=== PATIENT | female | born 1960 | race Caucasian/White ===

== ENCOUNTER 2016-11-24 01:12 | Emergency (ER) | payer OTHER ==
[2016-11-24] MEDS ORDERED: ASPIRIN CHEWTAB 81 MG TABLET ONE (01:41)
[2016-11-24 02:48] LABS: ALBUMIN 3.6 gm/dL (3.5-5.7); CALCIUM 9.2 mg/dL (8.6-10.3); MAGNESIUM 1.5 mg/dL (1.9-2.7)
[2016-11-24 02:49] LABS: TROPONIN I < 0.01 ng/ml (0.0-0.06)
[2016-11-24 02:51] LABS: ABSOLUTE NEUTROPHIL COUNT 2.8 K/mm3 (1.8-7.7); BASO # 0.1 K/mm3 (0.0-0.2); BASO % 0.8 % (0.2-1.0); EOS # 0.2 (0.0-0.5); EOS % 2.7 % (0.9-2.9); HEMATOCRIT 33.5 % (37.0-47.0); HEMOGLOBIN 11.8 gm/l (12.0-16.0); IMM NEUT% 0.3 % (0-1); LYMPH # 3.5 (1.0-4.8); LYMPH % 48.5 % (15-45); MEAN CELL VOLUME 81.5 fl (81.0-99.0); MEAN CORPUSCULAR HEMOGLOBIN 28.7 pg (27.0-31.0); MEAN CORPUSCULAR HGB CONC 35.2 g/dl (33.0-37.0); MEAN PLATELET VOLUME 10.3 fl (7.4-10.4); MONO # 0.6 (0.0-0.8); NEUT % 38.7 % (43-75); PLATELET COUNT 351 K/mm3 (130-400); RED CELL DISTRIBUTION WIDTH 11.9 % (11.5-14.5)
[2016-11-24 04:24] LABS: SPECIFIC GRAVITY 1.015 (1.001-1.030); URINE APPEARANCE CLEAR; URINE BILIRUBIN NEGATIVE (NEGATIVE); URINE BLOOD NEGATIVE (NEGATIVE); URINE COLOR LIGHT YELLOW; URINE GLUCOSE (UA) NEGATIVE (NEGATIVE); URINE LEUKOCYTE ESTERASE NEGATIVE (NEGATIVE); URINE NITRITE NEGATIVE (NEGATIVE); URINE PROTEIN NEGATIVE (NEGATIVE); URINE UROBILINOGEN NORMAL (0-1 mg/dl)
--- NOTE | 2016-11-24 08:52 | RAD ---
Exam: Two-view chest COMPARISON: None INDICATION: Upper chest pain. Finding: PA and lateral views of the chest were obtained. Cardiac silhouette is within normal limits. Lungs are well-inflated. There is no focal airspace disease or pleural effusion. Bones of the chest wall within normal limits. IMPRESSION: Negative two-view chest.
== END 2016-11-24 06:28 | disposition home or self-care (01) ==
LOC: ED 01:12
DX: R07.9 Chest pain, unspecified (principal); R10.9 Unspecified abdominal pain; R11.10 Vomiting, unspecified; E10.9 Type 1 diabetes mellitus without complications; E03.9 Hypothyroidism, unspecified; Z79.4 Long term (current) use of insulin
CPT/HCPCS: 83690; 84703; 85025; 82553; 80053; 83735; 81003; 84484 ×2; 71020; 99284 ×2; 93005 ×2; A9270